=== PATIENT | female | born 1940 | race Caucasian/White ===

== ENCOUNTER 2022-08-01 13:22 | Outpatient (CLI) | payer MEDICARE, SELFPAY ==
--- NOTE | 2022-08-01 13:58 | ECG_ITS ---
Measurements Intervals [place] Rate: 81 P: 23 MA: 166 QRS: 9 QRSD: 88 T: 32 QT: 367 QTc: 427 Interpretive Statements SINUS RHYTHM NORMAL ECG NO PREVIOUS ECG AVAILABLE FOR COMPARISON Electronically Signed On 08-01-2022 14:49:55 CDT by Howard De La Fuente D.O.
[2022-08-01 14:21] LABS: Basophils Percent Auto 0.5 % (0.2-1.2); Eosinophils Absolute Auto 0.1 K/mm3 (0-0.3); Eosinophils Percent Auto 1.1 % (0-4.4); Hematocrit 35.4 % (37.0-47.0); Hemoglobin 11.1 g/dL (12.0-15.0); Immature Granulocyte Absolute 0.02 K/mm3 (0.00-0.031); Immature Granulocyte Percent A 0.3 % (0-0.5); Lymphocytes Absolute Auto 2.14 K/mm3 (0.9-3.2); Lymphocytes Percent Auto 34.2 % (18.3-44.2); Mean Corpuscular HGB Conc 31.4 g/dl (32-36); Mean Corpuscular Volume 92.4 fl (80-100); Mean Platelet Volume 10.2 fl (7.4-10.4); Monocytes Absolute Auto 0.6 K/mm3 (0.1-0.6); Monocytes Percent Auto 9.3 % (2.6-8.5); Neutrophils Absolute Auto 3.4 K/mm3 (1.3-6.7); Neutrophils Percent Auto 54.6 % (45.5-73.1); Platelet Count Result 170 k/mm3 (150-375); Red Blood Count 3.83 M/mm3 (4.2-5.4); Red Cell Distribution Width 13.9 % (11.5-14.5); White Blood Count 6.3 K/mm3 (4.5-10.0)
[2022-08-01 14:32] LABS: Alanine Aminotransferase 20 U/L (6-35); Albumin Level 4.4 g/dL (3.5-5.1); Alkaline Phosphatase 48 U/L (38-126); Anion Gap 8 mmol/L (8-16); Aspartate Amino Transferase 28 U/L (14-36); Bilirubin,Total 0.4 mg/dL (0.2-1.3); Blood Urea Nitrogen 21 mg/dL (7-17); Calcium 9.4 mg/dL (8.4-10.2); Carbon Dioxide 27 mmol/L (22-30); Chloride 106 mmol/L (98-107); Estimated Glomerular Filt Rate 60; Glucose 110 mg/dL (65-110); Potassium 4.6 mmol/L (3.4-5.0); Sodium 141 mmol/L (137-145)
[2022-08-01 14:42] LABS: INR 0.9; Prothrombin Time 13.1 Seconds (11.1-14.7)
[2022-08-01 14:43] LABS: Partial Thromboplastin Time 32.5 SECONDS (22.3-36.8)
== END 2022-08-01 13:23 | disposition home or self-care (01) ==
PROVIDERS: PCP Internal Medicine Infectious Disease; Visit Provider Urology
DX: N81.10 Cystocele, unspecified (principal); I10 Essential (primary) hypertension; Z01.818 Encounter for other preprocedural examination
CPT/HCPCS: 36415; 80053; 85025; 85610; 85730; 86850; 86900; 86901; 87086; 93005

== ENCOUNTER 2022-08-06 01:39 | Day surgery (SDC) | payer MEDICARE, SELFPAY ==
--- NOTE | 2022-08-01 14:01 | PC.NURSE ---
Addendum entered by Candace Brito RN 08/01/22 14:10: ARRIVE AT 0900 FOR 1100 SURGERY Original Note: Report to the Outpatient Waiting Room, entrance under the green pavilion located off [facility], at time _1000 on date ___08/06/22____. Planned Procedure Time: _1200 . Time changes happen often and if your time is changed the preop area will call you the afternoon before. - You and your visitor will be asked to self-screen and do not enter if you have any COVID symptoms. - A mask is optional within the hospital at this time. Patients may have clear liquids (water, carbonated beverages, clear teas, apple juice) until 3 hours prior to surgery with a maximum of 20 ounces. - No food from midnight until time of surgery - Infants may have breast milk until 4 hours before surgery, formula 6 hours prior to surgery. - Children will be allowed to drink immediately following surgery. If applicable, please bring a bottle or sippy cup to assist with drinking. Juice, water, soda, and popsicles are readily available. For infants on formula, please bring formula the day of surgery. Pacifiers are allowed. Take the following medications with a SIP of water the morning of surgery: ___GABAPENTIN DO NOT STOP ANY OF YOUR OTHER PRESCRIPTION MEDICATIONS PRIOR TO SURGERY ?EXCEPT THE FOLLOWING Medications to discontinue per physician ALL VITAMINS/SUPPLEMENTS 3 DAYS PRE OP.LAST DOSE 08/02/22 Please no make-up, nail salvadorean, hairspray, perfume, deodorant, or body powder the day of surgery. No jewelry (including any body piercings) or valuables the day of surgery, leave them at home. Please take a shower or bath the night before, or the morning of, surgery with an antibacterial soap. Wear comfortable, loose fitting clothing. Children are encouraged to wear pajamas. - Jewelry must be removed prior to entering the operating room. Rings and piercings that are not removed may be cut off. - The hospital will not accept responsibility for valuables. - Please leave all valuables, including medications, at home the day of surgery. If you are going home after surgery, a licensed septic pump truck driver must drive you home. - NO public transportation without another adult if you receive anesthesia. - We recommend that an adult stay with you for 24 hours following discharge. - We also recommend that you do not drive, make important decision, drink alcoholic beverages, or take any drugs that were not prescribed by your health care provider for at least 24 hours after your discharge time. Follow any additional instructions given to you from your surgeon. If you or anyone in your household have experienced Covid symptoms in the past week, please notify your surgeon or the nurse liaison at the phone number below for possible testing. VERBAL AND WRITTEN instructions given to __PATIENT AND SPOUSE and asked if any additional questions and then verbalized understanding. Patient advised to call surgeon office or pre surgery nurse liaison [phone] if any additional questions.
[2022-08-01 14:43] VITALS: BP 152/68; PULSE 83; RESP 18; TEMP 37.2; O2SAT 98; BMI 29.5
--- NOTE | 2022-08-04 11:37 | PM.IMHP ---
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 She desires surgical correction. She is not sexually active Review of Systems Review of Systems: All systems reviewed & are unremarkable except as noted in HPI and below PMFSH Family History Family History Other Carcinoma of colon Social History Social History Smoking status: Never smoker Alcohol intake: never Living arrangements: with family Spiritual care concerns: No Meds Home Medications and Allergies Home Medications Medication Instructions Recorded Confirmed Type acetaminophen 500 mg capsule 1,000 mg PO Q6H PRN Pain 08/01/22 08/01/22 History cholecalciferol (vitamin D3) 10 30 mcg PO DAILY 08/01/22 08/01/22 History mcg (400 unit) tablet cyanocobalamin (vitamin B-12) 1,000 mcg PO DAILY 08/01/22 08/01/22 History 1,000 mcg tablet gabapentin 300 mg capsule 300 mg PO TID 08/01/22 08/01/22 History glimepiride 2 mg tablet 1 mg PO DAILY 08/01/22 08/01/22 History lisinopril 5 mg tablet 5 mg PO DAILY 08/01/22 08/01/22 History metformin 1,000 mg tablet 1,000 mg PO BID 08/01/22 08/01/22 History simvastatin 10 mg tablet 10 mg PO HS 08/01/22 08/01/22 History Allergies Allergy/AdvReac Type Severity Reaction Status Date / Time metoclopramide AdvReac Dizziness Verified 08/01/22 13:39 tramadol AdvReac Nausea,DIZZ Verified 08/01/22 13:40 Y Exam Narrative: vaginal vault prolapse at +5 fixed urethra Assessment and Plan Assessment and plan (1) Prolapse of vaginal vault after hysterectomy: Code(s): N99.3 - Prolapse of vaginal vault after hysterectomy Status: Acute (2) Intrinsic sphincter deficiency (ISD): Code(s): N36.42 - Intrinsic sphincter deficiency (ISD) Status: Acute Plan plan for colpocleisis as well as bulking agent. Understands risks of bleeding, infection, damage to the bowel or urinary tract, fistula formation, inability to have penetrative intercourse, postoperative voiding dysfunction including incontinence and retention, recurrence of prolapse, hip and leg pain. Agrees to proceed
[2022-08-06] VITALS (9 sets, daily range): BP systolic 117–175; BP diastolic 57–66; PULSE 73–91; RESP 11–18; TEMP 36.1–36.4; O2SAT 96–100
--- NOTE | 2022-08-06 07:12 | WPDHPUPDATE1 ---
History and Physical Update Update Date/Time: 08/06/22 07:12 History and Physical has been reviewed, including an updated exam of the patient. There are NO changes in the patient's condition. Risks, benefits, and alternatives have been discussed and questions answered. Patient agrees to proceed with procedure.
[2022-08-06] MEDS: LACTATED RINGERS 1,000 ML 30 ML IV CONT ×2 (10:00→12:22)
[2022-08-06 10:03] LABS: Glucose Point of Care 94 mg/dl (65-105)
--- NOTE | 2022-08-06 10:15 | P.PNAN_ITS ---
Anes - Initial Pre Proc Eval Procedure: Operation Date: 08/06/22 11:00 Proposed Procedures p Colpocleisis - Stan Solares MD s Urethral Sling - Stan Solares MD s Cystoscopy with Collagen Injection - Stan Solares MD Date/Time: 08/06/22 10:15 Surgeon: Stan Solares MD Pre Op Diagnosis: Vaginal vault prolapse, Inccont Patient Data Age: 82 Gender: F Height: 1.57 m Weight: 71.15 kg Last Vital Signs Temp 36.1 C L 08/06/22 10:05 Pulse 76 08/06/22 10:05 Resp 16 08/06/22 10:05 BP 175/57 H 08/06/22 10:05 Pulse Ox 100 08/06/22 10:05 O2 Del Method Room Air 08/06/22 10:05 Allergies Allergy/AdvReac Type Severity Reaction Status Date / Time metoclopramide AdvReac Dizziness Verified 08/06/22 09:34 tramadol AdvReac Nausea,DIZZ Verified 08/06/22 09:34 Y Home Medications Medication Instructions Recorded Confirmed Type acetaminophen 500 mg capsule 1,000 mg PO Q6H PRN Pain 08/01/22 08/06/22 History cholecalciferol (vitamin D3) 10 30 mcg PO DAILY 08/01/22 08/06/22 History mcg (400 unit) tablet cyanocobalamin (vitamin B-12) 1,000 mcg PO DAILY 08/01/22 08/06/22 History 1,000 mcg tablet gabapentin 300 mg capsule 300 mg PO TID 08/01/22 08/06/22 History glimepiride 2 mg tablet 1 mg PO DAILY 08/01/22 08/06/22 History lisinopril 5 mg tablet 5 mg PO DAILY 08/01/22 08/06/22 History metformin 1,000 mg tablet 1,000 mg PO BID 08/01/22 08/06/22 History simvastatin 10 mg tablet 10 mg PO HS 08/01/22 08/06/22 History Laboratory Tests 08/06/22 10:00 POC Capillary Glucose 94 mg/dl (65-105) Patient hx anesthesia problems: none Family hx anesthesia problems: none Results Review: All pre-operative results and documents have been reviewed as part of the pre- operative evaluation. [facility] Family History Family History Other Carcinoma of colon Social History Social History Smoking status: Never smoker Alcohol intake: never Living arrangements: with family Spiritual care concerns: No Anes - Eval Final PreProcedure Day of Procedure 08/06/22 10:15 Patient weight: overweight Heart: regular rate and rhythm Lungs: clear to auscultation Airway: Mallampati scale class III Neurological: alert and oriented Last oral intake: >/= 8 hours ASA classification: III Emergent: no Anesthetic plan: proceed Anesthesia type and monitoring: general LMA and standard monitoring Results Review: All pre-operative results and documents have been reviewed as part of the pre- operative evaluation. Informed Consent: The patient's anesthetic plan and its attendant risks and benefits were discussed with the patient/family/POA. Questions were solicited and answers provided to the satisfaction of the patient/family/POA.
[2022-08-06] MEDS: ceFAZolin 2 GM/D5W 50 ML 2 GM/50 ML BAG IVPB (10:40)
[2022-08-06] MEDS: BUPIVACAINE/EPINEPHRINE 0.5% 50 ML VIAL 20 ML INFILTRATE (11:16)
[2022-08-06] MEDS: LIDOCAINE HCL 2% GEL UROJET 10 ML PKG MUCOUS MEM (12:12)
[2022-08-06 12:30] LABS: Glucose Point of Care 94 mg/dl (65-105)
--- NOTE | 2022-08-06 12:41 | W.PM.PROC2 ---
Procedure Note - Detailed Date of Procedure 08/06/22 Pre-op Diagnosis Vaginal vault prolapse, Cystocele Rectocele Intrinsic sphincter deficiency Post-op Diagnosis Same Procedure Performed Cystocele repair Rectocele repair Colpocleisis Perineorrhaphy Cystoscopy injection of bulking agent Surgeon Stan Solares MD Anesthesia General Findings Significant vaginal wall prolapse. Fixed urethra Description of Procedure She understands risks of bleeding, infection, damage to surrounding organs, damage to the urinary tract, fistula formation, inability to have penetrative intercourse, hip and leg pain, continued voiding dysfunction including incontinence and retention. She agrees to proceed She was correctly identified. Informed consent obtained. From the operating room. She was given general anesthesia. She was placed in dorsal lithotomy position. She was prepped and draped in a sterile fashion. She was given appropriate perioperative antibiotics. All pressure points were padded. A time-out was performed. I placed a [place] retractor. I placed a [place] catheter. She had significant vaginal wall prolapse well beyond the introitus. I grasped the prolapse. I ailin 2 rectangle shaped areas. One on the anterior vaginal wall. While the posterior vaginal wall. I anesthetized the posterior vaginal wall with local mixed with saline. I removed the mucosa off the posterior vaginal wall. I then did the same on the anterior vaginal wall. I took great care not to injure underlying organs I then performed a standard plication rectocele repair 0 Vicryl sutures and a plication cystocele repair again with 0 Vicryl sutures. This was done in a pursestring fashion completing a classic colpocleisis. I closed mucosa to mucosa with interrupted horizontal mattress sutures. I then turned my attention to the perineum. I removed a angelo-shaped area of skin on the perineum after anesthetizing it. I performed a perineorrhaphy with interrupted 0 Vicryl sutures. At then used 2-0 Vicryl to close the mucosa completing the prolapse repair. I was happy with the prolapse repair as well as hemostasis. On cystoscopy she had moderate trabeculations. There was no surgical artifact in the bladder urethra. No bladder abnormalities. Ureters were documented to be patent by either seen clear yellow urine excreted or by passing a guidewire up the ureters. Her urethra was open consistent with intrinsic sphincter deficiency. I chose a site 2 cm distal bladder neck. I injected 1-1/2 syringe of bulking agent circumferentially collapsing urethra. Her bladder was left partially full. She was awakened transferred to PACU in stable condition. Estimated Blood Loss -20.0
--- NOTE | 2022-08-06 13:22 | PC.NURSE ---
This patient, Celine Luis, was received from PACU via bed on 08/06/22 at 1322. Patient/family oriented to unit policies and routines.
[2022-08-06] MEDS: KCL 20 MEQ/D5/0.45% SOD CHL 1,000 ML 100 ML IV CONT (15:25)
[2022-08-06] MEDS: GABAPENTIN 300 MG CAPSULE PO (15:25)
--- NOTE | 2022-08-06 16:37 | PC.NURSE ---
1545: pt had residual of 466 cc after voiding 200 cc.
[2022-08-06] MEDS: metFORMIN HCL 500 MG TABLET 1000 MG PO (17:08)
[2022-08-06] MEDS: ceFAZolin 1 GM/NS 50 ML 1 GM/50 ML BAG IVPB (17:08)
--- NOTE | 2022-08-06 17:26 | PC.NURSE ---
Bladder scan revealed 453 cc residual urine.
--- NOTE | 2022-08-06 18:30 | PC.NURSE ---
Patient voided 300mL in urine hat. Patient was bladder scanned and it showed 380 mL left in the bladder. Patient was then straight cathed and 350mL was collected.
--- NOTE | 2022-08-06 20:30 | PC.NURSE ---
Patient voided 200 mL. Patient was then checked with the bladder scanner and measured 130mL post void.
[2022-08-06] MEDS: SIMVASTATIN 10 MG TABLET PO (21:14)
[2022-08-06] MEDS: HYDROcodone/acetaminophen (*CRX) 5-325 MG TABLET 1 TAB PO (23:20)
[2022-08-07 02:20] VITALS: BP 117/55; PULSE 72; RESP 16; TEMP 36.2
[2022-08-07] MEDS: ceFAZolin 1 GM/NS 50 ML 1 GM/50 ML BAG IVPB ×2 (02:20→10:24)
[2022-08-07] MEDS: HYDROcodone/acetaminophen (*CRX) 5-325 MG TABLET 1 TAB PO (03:27)
--- NOTE | 2022-08-07 07:39 | WPDANESPN ---
Anes - Prog Note Post-Op Date/Time: 08/07/22 07:39 Vital Signs: Last Vital Signs Temp 36.2 C L 08/07/22 02:20 Pulse 72 08/07/22 02:20 Resp 16 08/07/22 02:20 BP 117/55 L 08/07/22 02:20 Pulse Ox 96 08/06/22 13:35 O2 Del Method Room Air 08/06/22 13:10 O2 Flow Rate 8 08/06/22 12:38 Pain Score (VAS): 2 I/O: Intake & Output 08/06/22 08/06/22 08/07/22 15:59 23:59 07:59 Intake Total 750 50 50 Output Total 600 1025 Balance 150 -975 50 08/06/22 08/06/22 10:00 12:27 POC Capillary Glucose 94 94 Patient Feedback: Patient satisfied with anesthetic care.
[2022-08-07 07:55] VITALS: BP 98/68; PULSE 65; RESP 18; TEMP 36.8; O2SAT 98
[2022-08-07] MEDS: ENOXAPARIN 30 MG/0.3 ML SYRINGE SUB-Q (08:57)
[2022-08-07] MEDS: lisinopriL 5 MG TABLET PO (08:58)
[2022-08-07] MEDS: GABAPENTIN 300 MG CAPSULE PO (08:58)
[2022-08-07] MEDS: DOCUSATE SODIUM 100 MG CAPSULE PO (08:58)
[2022-08-07] MEDS: metFORMIN HCL 500 MG TABLET 1000 MG PO (08:58)
[2022-08-07 09:08] LABS: Glucose Point of Care 110 mg/dl (65-105)
--- NOTE | 2022-08-07 12:55 | WPDUROPN2 ---
Progress Note: A&P Assessment and Plan (1) Intrinsic sphincter deficiency (ISD): Code(s): N36.42 - Intrinsic sphincter deficiency (ISD) Status: Acute (2) Prolapse of vaginal vault after hysterectomy: Code(s): N99.3 - Prolapse of vaginal vault after hysterectomy Status: Acute Assessment and Plan: Ok to discharge home after second dose of Ancef. Subjective Subjective Date/Time Seen: 08/07/22 12:55 Cystocele Repair, Rectocele repair, Colpocleisis, cysto inject of bulking agent. Patient doing well, shes tolerating diet, activity and urinating without a mayes. Post Op day: 1 Review of Systems Cardiovascular: Cardiovascular: Denies chest pain Respiratory: Respiratory: Reports no additional respiratory complaints Gastrointestinal: Gastrointestinal: Denies abdominal pain, Denies nausea and Denies vomiting Genitourinary: Genitourinary: Denies hematuria, Denies nocturia, Denies dysuria, Denies pelvic pain, Denies flank pain, Denies urinary incontinence, Denies urinary hesitancy and Denies urinary urgency Exam Const: General: cooperative and comfortable Resp: Effort & Inspection: normal respiratory effort Cardio: Rate: regular rate GI: GI Palp: Yes Soft to palpation and Yes Tenderness to palpation present (GI) : General: Yes no CVA tenderness Extrem: Right lower extremity: no edema Left lower extremity: no edema Objective Data Vital Signs Vital Signs: Vital Signs - 24 hr 08/06/22 13:00 08/06/22 13:10 08/06/22 13:35 Temperature 97.5 F L Pulse Rate 78 81 73 Respiratory Rate 12 12 18 Blood Pressure 157/62 H 152/65 H 140/66 Pulse Oximetry 99 100 96 Oxygen Delivery Room Air Room Air 08/06/22 20:30 08/07/22 02:20 08/07/22 07:55 Temperature 97.5 F L 97.2 F L 98.2 F Pulse Rate 75 72 65 Respiratory Rate 16 16 18 Blood Pressure 117/65 117/55 L 98/68 L Pulse Oximetry 98 Oxygen Delivery Intake/Output Intake/Output: Intake & Output 08/04/22 08/05/22 08/06/22 08/07/22 23:59 23:59 23:59 23:59 Intake Total 800 300 Output Total 2024 Balance -1225 300 Meds/Results Medications: Active Medications Generic Name Dose Route Start Last Admin Trade Name Freq PRN Reason Stop Dose Admin Acetaminophen 650 mg 08/06/22 13:13 Acetaminophen 325 Mg Tablet PO Q4H PRN Mild Pain (1-3) or Fever Hydrocodone Bitart/Acetaminophen 1 tab 08/06/22 13:13 08/07/22 03:27 Hydrocodone/Acetaminophen (*Crx) 5-325 Mg Tablet PO 1 tab Q4H PRN Administration Pain Rated 4-5 Cephalexin HCl 500 mg 08/07/22 13:00 Cephalexin 500 Mg Capsule PO QID ALDA Dextrose 12.5 gm 08/06/22 13:13 Dextrose 50% 25 Gm/50 Ml Syringe IV PUSH PRN PRN Hypoglycemia Protocol Diphenhydramine HCl 25 mg 08/06/22 13:13 Diphenhydramine Hcl Inj 50 Mg/Ml Vial IV PUSH Q6H PRN Itching Docusate Sodium 100 mg 08/07/22 09:00 08/07/22 08:58 Docusate Sodium 100 Mg Capsule PO 100 mg DAILY ALDA Administration Enoxaparin Sodium 30 mg 08/07/22 09:00 08/07/22 08:57 Enoxaparin 30 Mg/0.3 Ml Syringe SUB-Q 30 mg DAILY ALDA Administration Gabapentin 300 mg 08/06/22 13:13 08/07/22 08:58 Gabapentin 300 Mg Capsule PO 300 mg TID ALDA Administration Glimepiride 1 mg 08/07/22 09:00 08/07/22 09:44 Glimepiride 1 Mg Tablet PO Not Given DAILY ALDA Glucagon 1 mg 08/06/22 13:13 Glucagon For Inj 1 Mg Vial IM PRN PRN Hypoglycemia Protocol Glucose 15 gm 08/06/22 13:13 Glucose Oral Gel 15 Gm Of Glucse In 37.5 Gm Tube PO PRN PRN Hypoglycemia Protocol Dextrose 1,000 mls @ 100 mls/hr 08/06/22 13:13 Dextrose 5% 1,000 Ml IVPB PRN PRN Hypoglycemia Protocol Insulin Aspart 3 - 6 units 08/06/22 17:00 08/07/22 09:43 Insulin Aspart (*Bkc) 100 Units/Ml SUB-Q Not Given TIDWM ALDA Protocol Lisinopril 5 mg 08/07/22 09:00 08/07/22 08:58 Lisin
== END 2022-08-07 11:42 | disposition home or self-care (01) ==
LOC: ANHSURGERY 12:40 → ANHOB2 13:19
PROVIDERS: PCP Internal Medicine Infectious Disease; Visit Provider Urology
PROC: (CPT 57120; principal; 2022-08-06 11:00)
PROC: 3E0K8GC Introduction of Other Therapeutic Substance into Genitourinary Tract, Via Natural or Artificial Opening Endoscopic (ICD-10-PCS; CPT 57260; 2022-08-06 11:00)
DX: N99.3 Prolapse of vaginal vault after hysterectomy (principal); N36.42 Intrinsic sphincter deficiency (ISD); Z79.84 Long term (current) use of oral hypoglycemic drugs
CPT/HCPCS: 57260; 51715; 82948; 99199; A9270; C1758; C1769; J0690; J1100; J1650; J2405; J2704; J3480; J7030; J7120; L8606; Q9968